=== PATIENT | female | born 1975 | race Caucasian/White ===

== ENCOUNTER 2020-01-15 12:14 | Emergency (ER) | payer OTHER | END 2020-01-15 13:50 | disposition home or self-care (01) | LOC: JVIRT 12:14 | DX: Z03.818 Encounter for observation for suspected exposure to other biological agents ruled out (principal) | CPT/HCPCS: C9803; Q3014-GT; U0003 ==

== ENCOUNTER 2021-05-08 10:15 | Emergency (ER) | payer OTHER ==
[2021-05-08 10:25] VITALS: TEMP 97.8; BMI 29.2
[2021-05-08] MEDS ORDERED: LIDOCAINE 5% TOPICAL PATCH TP ONE (11:01)
[2021-05-08] MEDS ORDERED: ACETAMINOPHEN 1000 MG/100 ML BAG IVPB ONE (11:01)
[2021-05-08] MEDS ORDERED: ASPIRIN 81 MG CHEWABLE TABLETS PO ONE (11:01)
[2021-05-08] MEDS ORDERED: METHOCARBAMOL 500 MG TABLET PO ONE (11:01)
[2021-05-08] MEDS ORDERED: LACTATED RINGERS SOLUTION 1000 ML INFUS.BAG IV ONE (11:03)
[2021-05-08] MEDS ORDERED: ASPIRIN 81 MG CHEWABLE TABLETS ONE (11:10)
[2021-05-08] MEDS ORDERED: ACETAMINOPHEN INJECTION 100 ML IVPB ONE (11:11)
[2021-05-08] MEDS ORDERED: LIDOCAINE 5% TOPICAL PATCH ONE (11:11)
[2021-05-08] MEDS ORDERED: METHOCARBAMOL 500 MG TABLET ONE (11:11)
[2021-05-08 11:29] LABS: INR 0.97 (0.83-1.09); PROTHROMBIN TIME (PATIENT) 11.1 SEC (9.7-13.0)
[2021-05-08 11:49] LABS: CALCIUM 9.3 mg/dl (8.5-10); CREATININE 0.6 mg/dl (0.55-1.3); TOT PROT 6.4 g/dl (6.4-8.2)
[2021-05-08 12:14] LABS: BASO % 1.1 % (0-2.0); EOS % 1.1 % (0-4.5); HEMATOCRIT 40.3 % (32.4-45.2); HEMOGLOBIN 13.6 GM/dL (10.7-15.3); LYMPH % 33.4 % (8-40); MCH 27.8 pg (25.7-33.7); MCHC 33.7 g/dl (32.0-36.0); MEAN CELL VOLUME 82.3 fl (80-96); MEAN PLT VOLUME 8.9 fl (7.5-11.1); MONO % 6.3 % (3.8-10.2); NEUT % 58.1 % (42.8-82.8); PLATELET COUNT 240 10^3/uL (134-434); RDW 13.6 % (11.6-15.6); WHITE BLOOD COUNT 3.7 K/mm3 (4.0-10.0)
[2021-05-08] MEDS ORDERED: SODIUM CHLORIDE 0.9% 1000 ML INFUS.BAG IV ONE (12:46)
[2021-05-08 16:01] VITALS: BP 118/80; PULSE 69
[2021-05-08] MEDS ORDERED: LIDOCAINE PATCH REMOVAL MC SCH (22:00)
== END 2021-05-08 16:15 | disposition home or self-care (01) ==
LOC: FER 10:15
PROC: 3E0333Z Introduction of Anti-inflammatory into Peripheral Vein, Percutaneous Approach (ICD-10-PCS; principal; 2021-05-08)
DX: M62.830 Muscle spasm of back (principal); E11.9 Type 2 diabetes mellitus without complications; R07.89 Other chest pain
CPT/HCPCS: 36415; 71045-TC-FY; 71275-TC; 80053; 81003; 81025; 82962; 84484; 85025; 85610; 85730; 93005; 99285-25; Q9967

== ENCOUNTER 2023-05-13 15:55 | Emergency (ER) | payer BC, OTHER ==
[2023-05-13] MEDS: IBUPROFEN 600 MG TABLET (FP) PO ONE (16:58)
[2023-05-13 17:14] VITALS: BP 116/70; PULSE 73; RESP 18; TEMP 98; BMI 35.4
== END 2023-05-13 19:28 | disposition home or self-care (01) ==
LOC: FER 15:55
DX: M25.532 Pain in left wrist (principal); M79.645 Pain in left finger(s); M25.562 Pain in left knee; S60.222A Contusion of left hand, initial encounter; W01.0XXA Fall on same level from slipping, tripping and stumbling without subsequent striking against object, initial encounter
CPT/HCPCS: 73110-TC-LT-FY; 73130-TC-LT-FY; 73562-TC-LT-FY; 99284-25

== ENCOUNTER 2024-12-19 06:12 | Day surgery (SDC) | payer BC ==
[2024-12-19] MEDS ORDERED: BUPIVACAINE HCL/PF 0.5% (5MG/ML) 10 ML VIAL ONE (07:15)
[2024-12-19] MEDS ORDERED: LIDOCAINE HCL/PF 1% SDV 5ML VIAL ONE (07:15)
[2024-12-19] MEDS ORDERED: ACETAMINOPHEN 500 MG TABLET (FP) ONE (10:29)
[2024-12-19] MEDS: ACETAMINOPHEN 500 MG TABLET (FP) PO ONE (10:30)
[2024-12-19 12:10] VITALS: BP 110/68; PULSE 69; RESP 20; TEMP 97.3
== END 2024-12-19 11:42 | disposition home or self-care (01) ==
LOC: JASU-SURG 06:12
PROVIDERS: ATTEND Pain Medicine Pain Medicine
PROC: 3E0U3BZ Introduction of Anesthetic Agent into Joints, Percutaneous Approach (ICD-10-PCS; 2024-12-19)
PROC: 3E0U33Z Introduction of Anti-inflammatory into Joints, Percutaneous Approach (ICD-10-PCS; principal; 2024-12-19 11:06)
DX: M53.3 Sacrococcygeal disorders, not elsewhere classified (principal)
CPT/HCPCS: 76000-TC-FY